=== PATIENT | male | born 1985 | race African-American/Black ===

== ENCOUNTER 2020-05-20 16:29 | Inpatient (IN) | payer OTHER ==
[~2020-05-20] VITALS: Ht 175.3 cm; Wt 68.0 kg
[2020-05-20 16:34] VITALS: BP 123/90
[2020-05-20 17:23] LABS: ABSOLUTE NEUTROPHILS 9.7 thou/uL (1.4-8.2); BASOPHILS 0.7 % (0.0-2.0); HEMATOCRIT 33.7 % (42.0-52.0); HEMOGLOBIN 10.4 gm/dL (14.0-18.0); LYMPHOCYTES 12.6 % (24.0-44.0); MCH 23.3 pg (26.0-34.0); MCHC 30.8 g/dL (28.0-37.0); MCV 75.6 fL (80.0-100.0); MONOCYTES 8.8 % (1.0-8.0); PLATELET COUNT 360 thou/uL (150-400); POLYS 74.9 % (36.0-66.0); RBC 4.45 mil/uL (4.50-6.00); RDW 19.5 % (10.5-14.5); WBC 12.9 thou/uL (4.0-11.0)
[2020-05-20 17:30] LABS: CALCIUM 9.4 mg/dL (8.5-10.1); CREATININE 1.1 mg/dL (0.7-1.3); POTASSIUM 3.5 mmol/L (3.5-5.1)
[2020-05-20 17:37] LABS: ALBUMIN 2.8 g/dL (3.4-5.0); TOTAL BILIRUBIN 0.8 mg/dL (0.2-1.0); TOTAL PROTEIN 7.2 g/dL (6.4-8.2)
[2020-05-20 20:31] LABS: URINE BLOOD NEGATIVE (Negative); URINE CLARITY CLEAR; URINE COLOR YELLOW; URINE GLUCOSE-RANDOM* NEGATIVE (Negative); URINE KETONES NEGATIVE (Negative); URINE LEUKOCYTES-REFLEX NEGATIVE (Negative); URINE NITRITE-REFLEX NEGATIVE (Negative); URINE PROTEIN (DIPSTICK) TRACE (Negative); URINE SPECIFIC GRAVITY <= 1.005 (1.005-1.035)
[2020-05-20 20:41] LABS: ICTOTEST (BILI CONFIRMATORY) Negative (Negative); URINE BILIRUBIN NEGATIVE (Negative)
[2020-05-20 20:45] LABS: INR 1.1; PROTIME 11.4 Seconds (9.3-11.4)
[2020-05-20 21:00] VITALS: BP 134/98
[2020-05-20 21:19] VITALS: BP 123/83
[2020-05-20 21:53] VITALS: BP 123/83
[2020-05-21 03:11] VITALS: BP 132/92
--- NOTE | 2020-05-21 03:15 | NUR ---
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 AND CURRENTLY GOING THROUGH CHEMO .PT COMES FROM [facility] AND HERE TO VISIT FAMILY.PT STATES HE HAS NOT EATEN FOR 1WEEK AND UNABLE TO TAKE DOWN ANYTHING.PT HAS A RT CHEST PORT-A-CATH WITH NS AT 126CC/HR.PT TO HAVE NG TUBE BUT REFUSES IT AT THIS POINTS AND WANTS IT LATER DURING THE DAY AFTER PAIN HAS BEEN MANAGED.PT IS NPO.PT USES URINAL.PT IS ON A MORPHINE SCIENTIST ELECTRONICS PUMP AND CONTINUOUS O2 SAT MONITOR AND TELE BECAUSE OF MORPHINE SCIENTIST ELECTRONICS.PT HAS A PROTRUDING ABD AND A COLOSTOMY WITH NO OUT PUT OF THIS TIME.WILL CONTINUE TO MONITOR PER POC
[2020-05-21 10:27] VITALS: BP 146/96
--- NOTE | 2020-05-21 12:23 | NUR ---
assumed care at 0700. pt is a&o x4. pt talks very fast. pt is very flat personality. CORPORATE WEBMASTER pump is intact and is being documented every 4 hours. Vertified with night nurse at 0700 for CORPORATE WEBMASTER. faxed MRI to [facility] reports . completion documentation is located in chart. pt has right port and aspiration of blood. pt denies any pain. there is no swelling or redness around IV. skin is very dry and rough. pt is currently npo. pt still denies ng tube. pt is on the tele monitor due to morphine. protuding stomach. fall precaution. call light within reach. will continue to monitor and reassess pt.
[2020-05-21 19:25] VITALS: BP 130/92
--- NOTE | 2020-05-22 02:47 | NUR ---
PT CARE ASSUMED WITH PT IN BED .PT IS A/O X4.PT USES URINAL.NG TUBE IN PLACE TO DECOMPRESS ABD.XRAY DONE TO CONFIRM CORRECT PLACEMENT OF TUBE IN STOMACH.PT IS ON MORPHINE WELDER SETTER ELECTRON BEAM MACHINE AND INTERVENTION DOCUMENTED.IV IS RT CHEST PORT- A CATH WITH D5W 0.9NS AT 125MLS/HR.PT APPEARED TO BE CALMA ND COORPERATIVE DURING SHIFT.WILL CONTINUE TO MONITOR PER POC
[2020-05-22 03:45] VITALS: BP 138/94
[2020-05-22 08:10] VITALS: BP 140/93
--- NOTE | 2020-05-22 13:10 | NUR ---
Assumed care of pt. at 0700. Pt. was calm and cooperative. At 1250 Dr. Scruggs came by to visit pt. stated that NG tube had slipped from its original placement and he wanted pushed back to original measurement and a KUB was ordered to reverify placement of NG tube. Tube immediately pushed back to orignal insertion length. Sheba also requested suction to be intermitent and set to low.
--- NOTE | 2020-05-22 15:19 | NUR ---
PT ADMITTED RELATED TO [facility]BO, MALIGNANAT NEOPLASM OF COLON WITH LIVER METS. CM REVIEWED CHART AND SPOKE WITH CARE TEAM. CM ATTEMTPED PC TO PT'S ROOM WIHT NO ANSWER. DR. GARCIA HAD BEEN CONSULTED AND HAS VISITED AND FOLLOWED UP WITH PT AND FAMILY. PT HAS STEP MOM JUAN RAMON CONTACT. 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 PT HAD [place] MEDICAID. FAMILY HAD INDICATED THAT THERE HAD BEEN SOME DISCUSSION OF PT MOVING HERE AND FOLLOWING UP WITH OR [facility] FOR CONTINUED CARES. CM TO FOLLOW UP WITH PT REGARDING PREFERENCES FOR FOLLOW UP CARES AND RESOURCES. PT HAS NG IN PLACE TO SUCTION. SURGERY, ONC, AND PALLIATIVE CARE CONSULTED. CM TO FOLLOW INDICATED WITH DC PLANNING.
[2020-05-22 17:52] LABS: ALBUMIN 2.4 g/dL (3.4-5.0); CALCIUM 8.7 mg/dL (8.5-10.1); CREATININE 0.9 mg/dL (0.7-1.3); PHOSPHORUS 3.4 mg/dL (2.6-4.7); POTASSIUM 3.5 mmol/L (3.5-5.1)
[2020-05-22 19:59] VITALS: BP 134/101
[2020-05-23 00:50] LABS: HEMATOCRIT 32.2 % (42.0-52.0); HEMOGLOBIN 9.9 gm/dL (14.0-18.0); MCH 23.4 pg (26.0-34.0); MCHC 30.6 g/dL (28.0-37.0); MCV 76.4 fL (80.0-100.0); RBC 4.21 mil/uL (4.50-6.00); RDW 19.7 % (10.5-14.5); WBC 10.4 thou/uL (4.0-11.0)
[2020-05-23 03:51] VITALS: BP 135/96
[2020-05-23 04:28] VITALS: BP 131/91
--- NOTE | 2020-05-23 04:59 | NUR ---
ASSUMED CARE OF PT AT 1900. PT IS A/O X4 AND IS UP WITH ASSISTANCE. NG IN PLACE AND DRAINING DARK BROWN WATERY LIQUID. CHEST PORT ON RIGHT CHEST IS IN PLACE AND WORKING APPROPRIATELY. DROP WIRER PUMP IN PLACE FOR COMFORT OF PT. PT C/O ITCHY SKIN. APPLIES BARRIER CREAM TO IRRITATED SKIN. TPN NOT GIVEN THEIR IS NO IV ACCESS. AWAITING IV TEAM TO PUT IN AN IV. PT REFUSED TO HAVE DROP WIRER PUMP DISCONNECTED FOR TPN TO BE GIVEN. COLOSTOMY IN PLACE AND HAS HAD ZERO OUTPUT. BLOOD PRESSURE WAS ELEVATED AT THE START OF SHIFT BUT WNL ONCE PAIN WAS UNDER CONTROL. VSS AT THIS TIME. PT IS LYING IN HIS BED AND APPEARS TO BE SLEEPING. WILL CONTINUE TO MONITOR.
[2020-05-23 06:09] LABS: HEMATOCRIT 32.3 % (42.0-52.0); HEMOGLOBIN 9.9 gm/dL (14.0-18.0); MCH 23.5 pg (26.0-34.0); MCHC 30.5 g/dL (28.0-37.0); MCV 76.9 fL (80.0-100.0); RBC 4.2 mil/uL (4.50-6.00); RDW 19.2 % (10.5-14.5); WBC 9.9 thou/uL (4.0-11.0)
[2020-05-23 06:28] LABS: ALBUMIN 2.2 g/dL (3.4-5.0); CALCIUM 8.7 mg/dL (8.5-10.1); CREATININE 0.8 mg/dL (0.7-1.3); MAGNESIUM 1.8 mg/dL (1.8-2.4); PHOSPHORUS 3.7 mg/dL (2.5-4.9); POTASSIUM 3.5 mmol/L (3.5-5.1); TOTAL BILIRUBIN 0.8 mg/dL (0.2-1.0); TOTAL PROTEIN 6.4 g/dL (6.4-8.2)
[2020-05-23 07:26] VITALS: BP 132/95
--- NOTE | 2020-05-23 16:23 | NUR ---
CM SPOKE WITH PT THIS MORNING. HE INDICATED IT WAS DIFFICULT FOR HIM TO SPEAK WIHT NG IN. HE CONFIRMED THAT HE PLANS TO RELOCATE HERE TO AREA. HE WAS AGREEABLE TO HAVING [facility] VISIT WITH HIM TO COMPLETE [place] MEDICA[place] AND DIS[place] APPLICATIONS. CM EMAILED [employer] REPS. CM NOTIFIED DR. GARCIA. CM TO FOLLOW INDICATED WITH DC PLANNING.
[2020-05-23 16:27] VITALS: BP 131/91
--- NOTE | 2020-05-23 19:58 | NUR ---
Received awake on bed. Due medications given as prescribed. On nothing per orem- pt informed and aware; mouth swabs offered. On telemetry; no complains and signs of chest pain, crushing sensation and heaviness. On room air. On blood sugar monitoring, taken and recorded accordingly. With NG to LIS, draining dark green drainage, output measured and recorded accordingly. With R chest port accessed- IV nurse Suzanna informed, she said she wasnt informed re: this patient; pt on ELECTRONICS LEAD pump- checked every 4 hours with charge nurse and signed off with next shift nurse; changed bag this afternoon as per protocol, intervention done. Continent of bladder, able to use urinal- output measured and recorded accordingly. Night RN informed me at shift change that TPN wasnt started because pt no access- called pharmacy if TPN is compatible with ELECTRONICS LEAD pump, as per Pharmacist linsey- TPN compatible with Morphine- informed and asked assistance re: starting TPN; started as per protocol- pt updated as well. Pt's mother came this afternoon, update given. To continue monitoring patient. Complained of itchiness, PRN pain meds given as prescribed.
[2020-05-23 20:02] VITALS: BP 124/75
--- NOTE | 2020-05-24 06:35 | NUR ---
ASSUMED CARE OF PT AT 1900HRS. PT AUX4 AND LETS NEEDS BE KNOWN. ASSESSMENT CHARTED. NG WAS ADVANCED TO 55CM AND CONNECTED TO LOW INTERMITTENT SUCTION WITH DARK GREEN OUTPUT. MORPHINE FIBERGLASS QUALITY TECHNICIAN CONTINUED. TPN CONTINUED. PT WAS ABLE TO GET COMFORABLE AND SLEEP PART OF THE SHIFT.
[2020-05-24 06:58] LABS: CREATININE 0.7 mg/dL (0.7-1.3); MAGNESIUM 1.9 mg/dL (1.8-2.4); PHOSPHORUS 3.3 mg/dL (2.5-4.9); POTASSIUM 3.4 mmol/L (3.5-5.1)
--- NOTE | 2020-05-24 07:09 | HC ---
[facility] [place] [address] CONSULTATION Name: RAMYA CUENCA Room #: 464-P ADM IN M.R.#: [id number] Admission: 05/20/20 Attend Phys: Ronda Cervantes Discharge: Date of : 87 Report #: [id number] THIS REPORT FOR: cc: Marielena SHEPPARD MD Physician not on staff Drew Gardner MD ~ DATE OF SERVICE: 05/21/2020 REQUESTING PHYSICIAN: Dr. Verito Butler. PRIMARY ONCOLOGIST: Dr. Pasha Cole, office phone number [phone] GENERAL SURGEON: Dr. Maldonado. HISTORY OF PRESENT ILLNESS: The patient is a 35-year-old gentleman from the [place], [place] area who usually gets his care with Dr. Cole who was visiting friends or family here in the [facility]. He reports worsening abdominal pain for about the last 2 weeks with minimal bowel movements also protuberance of his abdomen. When this provider saw the patient, he was having quite a bit of pain and had a hard time focusing answer questions. Much of the information obtained from other charts and also I talked with one of the doctors on-call, present medical oncologist in [place]. The patient reports and the other doctor confirms that the patient was diagnosed with what sounds like sigmoid cancer, metastatic to liver back in 09/2018. The patient is not sure if the primary tumor was resected and the doctor in [place] thinks from ____, that it may not have been resected, the patient began chemotherapy. It sounds like he may have had standard chemotherapies with things such as FOLFOX, Avastin, FOLFIRI, cetuximab and may be on omhhvj-vvs-qustp-line chemotherapy. Outside doctors seem to think the patient's last chemotherapy was in February, though the patient seemed to ____ several weeks ago. The patient seemed to think he had imaging in February whereas the outside physician thinks it may have been in December. We were in the process of obtaining both copies of notes from their office and also see if we can get images clouded from their facility to ours for comparison. The patient was seen in the ER last night. His CAT scan had evidence of both local disease and liver metastasis and also what may be small bowel loops dilated before the parastomal hernia and there is concern the patient may have had an obstruction caused by an adhesion or hernia. The patient will be seen by General Surgery later this morning. The patient is unable to provide much more history other than that. It sounds like previous to this, the patient had not had any new fevers, new chills, new arm or leg swelling. It sounds like it is mostly the ____ nausea, vomiting, decreased appetite and abdominal pain for the last week. Also, he has not had any stool in his ostomy bag since the symptoms began. The patient had tried his medicines, which he had available to him, [address] [place] [address] CONSULTATION Name: RAMYA CUENCA Room #: 464-P [facility] IN M.R.#: [id number] Admission: 05/20/20 Attend Phys: Ronda Cervantes Discharge: Date of : 87 Report #: [id number] which sounds like he had fentanyl, gabapentin, oxycodone, and morphine. SOCIAL HISTORY: Difficult to obtain at this time. He is a current 2-3 cigarettes a day smoker. Alcohol, yes. Marijuana maybe daily. FAMILY HISTORY: Not obtained at this time. PAST MEDICAL HISTORY: Notable for the colon cancer with mets to the liver. Also, possible partial colon resection, colostomy placement, and may be some liver surgery, also Port-A-Cath placement. FAMILY HISTORY: Does not appear to be contributing to the patient's admission. LABORATORY DATA: Lab work was notable for hemoglobin of 10.4, white count of 12.9. Electrolytes normal. Alkaline phosphatase elevated at 180. Albumin decreased at 2.8. CURRENT MEDICATIONS: Include morphine, I think on a ____ famotidine 20 b.i.d. IV, fentanyl p.r.n., IV fluids. The patient had extended morphine available to him. Supposedly, he had been also on extended morphine 15 mg, oxycodone IR 5 mg, gabapentin 300 mg, potassium chloride 20 mEq. These are currently in the pharmacy. PHYSICAL EXAMINATION: GENERAL: The patient is in obvious discomfort, having a hard time focusing answer questions. VITAL SIGNS: Recent height is 5 feet 9 inches, 175.3 cm, weight 150 pounds or 68 kilograms. Afebrile at 98.7, blood pressure 123/83, O2 sat 97-99%, respirations 18, pulse 97. NEUROLOGIC: Face appears symmetrical, moving arms and legs. Speech and thought pattern appropriate, but the patient is in obvious pain. He is having a difficult time focusing at this time. LUNGS: Appear to be clear. HEART: Appears to have a Port-A-Cath, right chest. ABDOMEN: Has obvious colostomy. Abdomen is protuberant. There are almost hyperactive bowel sounds in the upper right quadrant. EXTREMITIES: Without clubbing, cyanosis or edema. ASSESSMENT AND PLAN: 1. Metastatic sigmoid cancer diagnosis per history. He has been on several therapies. We will need to clarify when his last therapy was and whether he was responding. If he has had multiple lines of therapy, it may be time to consider palliative care with regards to his systemic disease treatment. For now, we will await surgeon's input regarding possible bowel obstruction and need for surgical relief if possible. [facility] [address] [place] [address] CONSULTATION Name: RAMYA CUENCA Room #: 464-P ADM IN M.R.#: [id number] Admission: 05/20/20 Attend Phys: Ronda Cervantes Discharge: Date of : 87 Report #: [id number] 2. Pain. Continue opiates per others. 3. Dehydration. Continue IV fluids. We will follow with you. <ELECTRONICALLY SIGNED> By: Drew Gardner MD 05/24/20 0709 [id number] Drew Gardner MD /nt
[2020-05-24 08:02] VITALS: BP 137/98
[2020-05-24 15:47] VITALS: BP 135/102
--- NOTE | 2020-05-24 20:54 | NUR ---
PT A&OX4, VSS, NO C/O PAIN. PATIENT HAS NG TUBE, DARK GREEN OUTPUT. PATIENT HAS RIGHT CHEST PORT, TPN RUNNING. PATIENT HAS COLOSTOMY. PATIENT ON MORPHINE WOODWORKING CRAFTSMAN PUMP. PATIENT EATING ICE, OTHERWISE NPO. NO SIGNS OF DISTRESS. WILL CONTINUE TO MONITOR.
--- NOTE | 2020-05-25 04:28 | NUR ---
Pt. rested quietly at intervals during the night when checked on during frequent rounds. He was up to the bathroom with standby assistance and had a loose brown bowel movement with a scant amount of red blood present. Useing morphine systems lead for pain control. Ng tube patent to left nostril. No c/o nausea. Bed alarm is on.
[2020-05-25 08:03] VITALS: BP 119/88
[2020-05-25 08:36] LABS: CREATININE 0.7 mg/dL (0.7-1.3); MAGNESIUM 1.9 mg/dL (1.8-2.4); PHOSPHORUS 3.6 mg/dL (2.6-4.7); POTASSIUM 3.7 mmol/L (3.5-5.1)
--- NOTE | 2020-05-25 08:40 | NUR ---
OSTOMY CARE; ALERT. COOPERATIVE, DID NOT BRING SUPPLIES TO HOSP, DUE TO LARGE STOMA SIZE PT USES 4'INCH REBECCA CUT TO FIT APPLIANCE, POUCH INTACT, NO STOOL NOTED, SUPPLIES PLACED AT [facility] TANNER INFORMED
--- NOTE | 2020-05-25 10:56 | NUR ---
[facility] referral sent per MD request for transfer of care services as patient has consented to possible transfer. Notified MD of need for new Covid testing and referral sent. Now awaiting response from [facility].
--- NOTE | 2020-05-25 14:46 | NUR ---
At 1440 called [facility] at [phone] Cervantes call this line to initiate the MD to MD request.
--- NOTE | 2020-05-25 19:31 | NUR ---
ASSUMED CARE OF THE PATIENT AT 0715, PATIENT ALERT AND ORIENTED X 4. PATIENT UP WITH ASSIST X 1 WITH THE WALKER. PATIENT HAS PET SUPPLIES SALESPERSON PUMP WITH MORPHINE 1 MG/HR Q 6MIN. PATIENT ASSISTED UP TO THE BATHROOM. DR ROCHE HERE TODAY, PATIENT WILL TRANSFER TO FOR AGGRESSIVE TREATMENT. UPDATE GIVEN TO STEP MOTHER. PATIENT CLEANED UP SOME TODAY AND LINEN CHANGED PER PET SUPPLIES SALESPERSON/RUSS. NO INFO ON TRANSFER THIS SHIFT. REPORT GIVEN TO DALILA/RN. PATIENT GIVEN BENADRYL THIS AFTERNOON FOR ITCHING.
[2020-05-25 20:13] VITALS: BP 141/90
--- NOTE | 2020-05-26 05:57 | NUR ---
VSS-AFEBRILE. LUNGS DIMISHED IN ALL SINGER BILATERALLY. NGT REMAINS IN PLACE, DRAINING BROWN FLUID TO RECEPTACLE. C/O SIGNIFICANT ABDOMINAL PAIN, REQUIRED ADDITIONAL FENTANYL THROUGH NIGHT FOR BREAKTHROUGH PAIN. WAS FINALLY ABLE TO REST WELL LATE INTO SHIFT. VOIDS USING URINAL WITHOUT DIFFICULTY. REFUSES TO HAVE BLOOD SUGARS CHECKED CITING SORE FINGERS. FALL PRECAUTIONS IN PLACE.
[2020-05-26 06:10] LABS: ALBUMIN 2.3 g/dL (3.4-5.0); CALCIUM 8.8 mg/dL (8.5-10.1); CREATININE 0.7 mg/dL (0.7-1.3); MAGNESIUM 1.9 mg/dL (1.8-2.4); POTASSIUM 3.8 mmol/L (3.5-5.1); TOTAL BILIRUBIN 0.7 mg/dL (0.2-1.0); TOTAL PROTEIN 6.9 g/dL (6.4-8.2)
[2020-05-26 08:12] VITALS: BP 132/84
[2020-05-26 09:00] VITALS: BP 127/83
[2020-05-26 15:28] VITALS: BP 122/86
--- NOTE | 2020-05-26 18:51 | NUR ---
PT A&OX4, VSS, GENERALIZED PAIN. PATIENT HAS COLOSTOMY NO OUTPUT. PATIENT HAS NG TUBE. PATIENT ON MORPHINE PAIN PUMP. PATIENT AWAITING TO DISCHARGE TO . NO SIGNS OF DISTRESS. WILL CONTINUE TO MONITOR.
[2020-05-26 20:07] VITALS: BP 130/84
[2020-05-27 03:28] VITALS: BP 119/80
[2020-05-27 07:49] LABS: CALCIUM 8.6 mg/dL (8.5-10.1); CREATININE 0.7 mg/dL (0.7-1.3); MAGNESIUM 2.2 mg/dL (1.8-2.4); PHOSPHORUS 2.5 mg/dL (2.5-4.9); POTASSIUM 3.5 mmol/L (3.5-5.1)
--- NOTE | 2020-05-27 07:53 | NUR ---
Assumed pt care at 1900. A/OX4 with flat affect. VSS.C/o pain to abd, on a CORPORATION OFFICER pump and Fentanyl for breakthrough pain. NG hooked up to LIS with greeninsh output noted. Colostomy in place with no output noted. Dry skin allover,benadryl given for itching with relief noted. Lab called with blood cultures results positive for yeast;ESTEFANY Rossi notified and n.o for Diflucan obtained. Right chest patent with TPN/NS/CORPORATION OFFICER infusing w/o any problems noted. Encouraged to call as needed. ST/NSR on telemetry,continuous POX in place.
[2020-05-27 08:00] VITALS: BP 121/82
[2020-05-27 16:17] VITALS: BP 124/95
--- NOTE | 2020-05-27 19:38 | NUR ---
Assumed pt care at 7am.Pt in bed sleeping on and off.Assessment completed.vss. Pt on ms human resources hr generalist but asking for fentanyl iv nearly every 2hour.Rn educated pt on human resources hr generalist usage .Tpn and maintenance ivf in progress.Pt voided per urinal and chew ice at alltimes.Pt mom here,updated given.Pt might transfered to in am if insurance accepted.Report off to Lisy hernández.
[2020-05-27 20:00] VITALS: BP 119/87
--- NOTE | 2020-05-28 04:28 | NUR ---
VSS-AFEBRILE. C/O SIGNIFICANT ABDOMINAL PAIN OVERNIGHT, REPORTS THAT MORPHINE IS NOT WORKING WELL FOR PAIN. PAIN PARTIALLY RELIEVED WITH IV FENTANYL. VOIDING PER URINAL. NO VISIBLE STOOL FROM COLOSTOMY. NGT CONTINUES TO DRAIN MODERATE AMOUNT OF BROWN LIQUID INTO DRAINAGE RECEPTACLE. TURNS SELF AROUND IN BED. FALL PRECAUTIONS IN PLACE, CALLS APPROPRIATELY FOR ANY NEEDED ASSISTANCE.
[2020-05-28 06:37] LABS: CREATININE 0.7 mg/dL (0.7-1.3); MAGNESIUM 2.1 mg/dL (1.8-2.4); POTASSIUM 4.1 mmol/L (3.5-5.1)
[2020-05-28 08:31] VITALS: BP 122/85
[2020-05-28 08:32] VITALS: BP 122/85
--- NOTE | 2020-05-28 20:07 | NUR ---
PT ALERT AND ORIENTED TIMES FOUR, WITH FALT SAD AFFECT. VSS, TPN AND IVF INFUSING PER ORDER. NG IN PLACE. MORPHINE OPERATIONS ADMINISTRATIVE ASSISTANT DISCONTINUED THIS SHIFT. PT CONTINUES TO GET FENTANYL FOR PAIN. SPOKE WITH PT MOM TODAY TO UPDATE ON CARE. WAITING ON APPROVAL TO TRANSFER TO . WILL CONTINUE TO MONITOR.
[2020-05-29 06:37] LABS: CALCIUM 8.9 mg/dL (8.5-10.1); CREATININE 0.7 mg/dL (0.7-1.3)
[2020-05-29 08:38] VITALS: BP 144/92
--- NOTE | 2020-05-29 12:48 | NUR ---
Patient refused blood sugar check.
--- NOTE | 2020-05-29 15:05 | NUR ---
MELISSA MET WITH PT AT BEDSIDE THIS DAY. PT WAS AGREEABLE WITH REFERRALS BEING SENT TO [facility] FOR POSSIBLE TRANSFER RELATED SURGICAL INTERVENTION FOR OBSTRUCTED STOMA. CM CALLED TRANSFER CENTER AND FAXED CLINICAL INFO. LOOKING INTO POSSIBLE TRANSFER TO [facility] OR [facility]. CM TO CONTACT [facility]. CM TO FOLLOW INDICATED WITH DC PLANNING.
[2020-05-29 15:09] VITALS: BP 141/97
--- NOTE | 2020-05-29 15:33 | NUR ---
Patient has not eaten or drunk so far.
--- NOTE | 2020-05-29 18:55 | NUR ---
According to the night nurse of the night of 05/28/2020, the NG tube came out accidently, but Dr. Cervantes voiced that if the patient didnot have nausea or vomitting, no need to put the NG in and NG tube was only needed if the patient had nausea or vomitting; the patient denied nausea. Patient did not eat or drink for the whole shift, voicing that he could not eat or drink due to the pain. around 6:30 pm, the patient reported vomitting. The emesis was brown color with fresh blood spots. The staff told the patient to keep NPO. The staff has paged Dr. Palomo, awaiting for the reponse to see if the NG tube needed to be put back, if the patient needed to be NPO again, can the Zofran be administrated.
[2020-05-29 19:54] VITALS: BP 134/101
--- NOTE | 2020-05-30 03:18 | NUR ---
PT CARE ASSUMED WITH PT IN BED.PT IS A/O X4.PT IS UP AD JEWELS AND EDUACTED O CALL FOR HELP.PT IS ON CLEAR LIQUID DIET.PT HAS A COLOSTOMY WITH VERY LITTLE OUTPUT.PT HAS FENTANYL Q2H PRN FOR PAIN MANAGEMENT AND ATIVAN FOR ANXIETY.PT IS ACCUCHECK Q6H.WILL CONTINUE TO MONITOR POC
[2020-05-30 09:44] VITALS: BP 136/97
--- NOTE | 2020-05-30 14:07 | NUR ---
1 WHARFMASTER, 1 DINAMAP MACHINE, 16 PATIENTS
--- NOTE | 2020-05-30 14:15 | NUR ---
PT A&OX4, FORGET, VSS, C/O PAIN. PATIENT GETS BENADRYL FOR ITCHING. PATIENT NO LONGER ON SET UP OPERATOR TOOL PAIN PUMP, NO NG TUBE. PATIENT HASNT VOMITED. PATIENT HAS RIGHT CHEST PORT. PLAN IS TO RECONNECT WITH [facility] AND GET PATIENT THERE FOR NEEDED CARES. NO SIGNS OF DISTRESS. WILL CONTINUE TO MONITOR.
[2020-05-30 16:26] VITALS: BP 124/90
--- NOTE | 2020-05-30 16:26 | NUR ---
UR NURSE SPOKE WITH [place] MEDICAID AND THEY INDICATED THAT IF PHYSICIAN INDICATED THAT TRANSFER WAS EMERGANTLY NEEDED THAT THEY WOULD LIKELY COVER STAY AT ANOTHER HOSPITAL FOR SERVICES. CM SONVEYED THIS TO PT AND HE WAS AGRREEABLE WITH REFERRAL BEING SENT TO [facility] AGAIN. CM CALLED TRANSFER CENTER AND THEY INDICATED THEY WOULD REVIEW. CM INCLUDED THE INSURANCE AUTH INFO WELL. MELISSA SPOKE WITH ROSE MAR[facility] AND SHE INDICATED THEY WERE DECLINING PT IN TRANSFER HE IS OON AND THEY ARE AT [place]. CM ATTEMPTED PC TO PT'S STEP MOM AND GOT VM. CM NOTIFIED.
[2020-05-30 19:15] VITALS: BP 133/99
--- NOTE | 2020-05-31 03:05 | NUR ---
PT CARE ASSUMED WITH PT IN BED SLEEPING.PT IS A/O X4.PT US UP AD JEWELS AND CALLS WHEN NEED HELP.PT C/O PAIN AND PAIN MANAGED WITH FENTANYL Q2H WITH PARTIAL.IV ACCESS RT CHEST A PORT WITH NS AT 80CC/HR.PT IS ACCUCHECK Q6H BUT REFUSED MIDNIGHT BLOOD SUGAR CHECKING.WILL CONTINUE TO MONITOR
[2020-05-31 03:20] VITALS: BP 139/103
[2020-05-31 05:01] VITALS: BP 142/107
[2020-05-31 08:45] VITALS: BP 128/93
--- NOTE | 2020-05-31 10:48 | NUR ---
CM NOTIFIED PT YESTERDAY THAT [facility] DECLINED TRANSFER. CM SPOKE WITH PT'S STEP MOM YESTERDAY EVENING AND SHE EXPRESSED UNDERSTANDING. SHE INDICATED SHE WOULD BE OK WITH REFERRAL BEING SENT TO [facility] THIS AM. CM MET WITH PT AND HE IS AGREEABLE WELL. CM GOT COPIES OF PT'S [place] MEDICAID CARD AND FAXED REFERRAL TO [facility]. CM SPOKE WITH [facility] IN TRANSFER CENTER AND THEY ARE AWAITING REFERRAL FOR REVIEW. PHYSICIAN INFO ALSO PROVIDED. CM TO FOLLOW INDICATED WITH HOPEFUL TRANSFER.
--- NOTE | 2020-05-31 16:17 | NUR ---
Assumed pt care at 7am.Pt in bed most of the times c/o abdominal pain rated 9/10.Fentanyl ivp given q2h with partial relief.Received call from pt dad,wanted to know when pt will be transfer to .Rn replied that shoe caser and Dr Cervantes has been working on it and will let pt know when it finalized. Pt was inpatient and wanted pain med given earlier than 2h.Dr Cervantes aware. Will continue to monitor.
[2020-05-31 20:15] VITALS: BP 140/96
--- NOTE | 2020-06-01 02:56 | NUR ---
ASSUMED CARE OF PT AT 1900HRS. PT AOX4 AND LETS NEEDS BE KNOWN. FALL PRECAUTION IN PLACE FOR SAFETY. PT REPORTS PAIN AND PRN MEDS PROVIDED AROUND THE CLOCK. PT WAS ABLE TO TOLERATE SMALL PO LIQUIDS THIS SHIFT. ASSESSMENT CHARTED. VSS AND NO S/S OF ACUTE DISTRESS. WILL CONTINUE TO MONITOR.
[2020-06-01 07:31] VITALS: BP 140/99
[2020-06-01 19:47] VITALS: BP 135/94
--- NOTE | 2020-06-01 20:22 | NUR ---
Assumed pt care this am, VS stable pain is not managed no fluids noted and still NPO except for sips of water with medication. POC followed, wants medication on the dot. endorsed to the night nurse. Is able to tolerated fluids (apple juice and broth).
[2020-06-02 07:25] VITALS: BP 147/106
--- NOTE | 2020-06-02 07:57 | NUR ---
VSS-AFEBRILE. UPSET AND AGITATED OVERNIGHT, STATES THAT HIS PAIN IS NOT CONTROLLED DESPITE FREQUENT DOSES. DISCUSSED WITH PHYSICIAN, WILL WORK ON PAIN MANAGEMENT PLAN TODAY. RIGHT CHEST PORT SALINE LOCKED. CALLS FOR ANY NEEDED ASSISTANCE.
[2020-06-02 11:14] LABS: HEMATOCRIT 28.6 % (42.0-52.0); HEMOGLOBIN 8.7 gm/dL (14.0-18.0); MCH 22.7 pg (26.0-34.0); MCHC 30.4 g/dL (28.0-37.0); MCV 74.5 fL (80.0-100.0); RBC 3.83 mil/uL (4.50-6.00); RDW 19.6 % (10.5-14.5)
[2020-06-02 11:27] LABS: CALCIUM 8.9 mg/dL (8.5-10.1); CREATININE 0.8 mg/dL (0.7-1.3); POTASSIUM 3.4 mmol/L (3.5-5.1)
--- NOTE | 2020-06-02 13:44 | NUR ---
Patient BG 69, patient refused blood sugar check after the treatment.
--- NOTE | 2020-06-02 14:17 | NUR ---
Dr. Palomo stated that the patient is NPO. Patient has been asking to get to ER to get something to drink. The staff explained it to the patient.
--- NOTE | 2020-06-02 15:35 | NUR ---
CM CALLED OVER TO [facility] TRANSF[facility] AT 1530 THIS DAY. CM INDICATED THAT WE ARE STILL LOOKING TO TRANSFER PT. THEY ARE CHECKING TO SEE IF THEY MIGHT BE ABLE TO ACCEPT AGAIN. AWAITING RESPONSE. CM TO FOLLOW INDICATED WITH DC PLANNING.
[2020-06-02 15:45] VITALS: BP 128/93
--- NOTE | 2020-06-02 18:43 | NUR ---
Patient Blood sugar 61, refused blood sugar recheck after the treatment.
[2020-06-02 19:59] VITALS: BP 133/104
--- NOTE | 2020-06-02 20:06 | NUR ---
Night nurse Kareen witnessed TRAILER STEERER pump cleared during the shift report, agreed to verify it.
--- NOTE | 2020-06-03 05:42 | NUR ---
Pt. rested quietly at intervals during the night when checked on during frequent rounds. Fentanyl tree climber providing some abominal pain relief. No c/o nausea. Benadryl given for c/o itching with some relief noted (see emar).
[2020-06-03 07:29] VITALS: BP 133/98
--- NOTE | 2020-06-03 13:19 | HC ---
[facility] [place] [address] CONSULTATION Name: RAMYA CUENCA Room #: 464- ADM IN M.R.#: [id number] Admission: 05/20/20 Attend Phys: Ronda Cervantes Discharge: Date of : 87 Report #: [id number] THIS REPORT FOR: cc: Marileena SHEPPARD MD Physician not on staff Andrew Nathan MD ~ SECOND OPINION CONSULT HISTORY OF PRESENT ILLNESS: The patient is a 35-year-old who was admitted for bowel obstruction. Unfortunately, the patient has metastatic colon cancer with colostomy. The patient came in because of inability to eat, abdominal pain. The patient has not had any output from his ostomy for about a week. [place] from out of town, so information is fairly limited. The patient had a CT scan performed. Has an obstructive pattern, but I looked at the CT and it is difficult to determine the exact site of the obstruction. He does have a fair amount of stool in the right side of his colon. EXAMINATION: The patient is cachectic, which is consistent with his metastatic colon cancer. Abdomen is distended and firm. He is difficult to examine. He would not like you really palpate very much. He would push your hand away. The patient has a colostomy in the left lower quadrant, which looks like a loop colostomy. The herniated bowel is superior to the stoma. It is soft and not particularly tender in that area. Abdomen feels like it is fairly ____ by physical exam, there is not much mobility at all. 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 Has ascites. The omentum looks very thickened. Unfortunately, it is difficult when I reviewed the CT to determine where the site of the obstruction. I am not convinced that ____ obstructed at the parastomal hernia site. So, I do not think fixing that may not resolve his bowel obstruction. He could have implant along the small bowel more proximally causing the obstruction. Unfortunately, with his metastatic disease to the degree that he has, there is no surgery possible. I agree with Dr. Maldonado that possible referral to tertiary center if surgery is planned to be attempted. <ELECTRONICALLY SIGNED> By: Andrew Nathan MD 06/03/20 1319 [id number] Andrew Nathan MD /nt
[2020-06-03 14:53] VITALS: BP 132/93
--- NOTE | 2020-06-03 19:53 | NUR ---
Assumed pt care this am, VS stable currently on the fentanyl scorer single pump, partial relief of pain and dependency (narcotics) is noted. Steady on his gait, is able to ambulate in his room, took a complete self bath and use the commode on his own. Step mother at the bedside, conversed with Dr. Maldonado regarding possible outcomes with regards to surgery, no plans are made as of this time. Small volume of stool is note in the colostomy bag. Pt does not fully comprehend the gravity of his condition nor understands what stes need to be done to be able to get to [facility] for the surgery. POC followed, with partial relief of pain noted, endorsed to the night nurse.
[2020-06-03 20:25] VITALS: BP 134/100
--- NOTE | 2020-06-04 05:11 | NUR ---
Pt. rested quietly at short intervals during the night when checked on during frequent rounds. Continues on the fentanyl bellmaker pump with some relief of ab- dominal pain. No c/o nausea. Tolerating clear liquid diet. Benadryl given (see emar) for c/o itching with mild relief.
[2020-06-04 08:00] VITALS: BP 120/87
[2020-06-04 08:43] VITALS: BP 120/87
[2020-06-04] MEDS ORDERED: CATAPRES-TTS 20.2 MG TRANSDERM (11:03)
[2020-06-04] MEDS ORDERED: DIFLUCAN200 MG PO (11:03)
[2020-06-04] MEDS ORDERED: HYDROCODONE-ACE15 ML PO (11:04)
[2020-06-04] MEDS ORDERED: ZOFRAN ODT4 MG PO (11:16)
--- NOTE | 2020-06-04 20:00 | NUR ---
PT A&0X4, VSS, GENERALIZED PAIN. PATIENT ON STOCK BUYER PUMP. PATIENT DISCHARGED HOME. PATIENT STATED HE WAS GOING TO [facility] THIS SAME NIGHT BECAUSE HE WAS AFRAID HE COULDNT GET HIS PRESCRIPTIONS FILLED OR SOME OTHER EVENT OUT OF HIS CONTROL. PATIENTS LEFT CHEST PORT HEPARINIZED AND DEASSESSED. PATIENT WAS AWARE THAT HE HAD DISCHARGE ORDERS SINCE THIS AM. PATIENT TOLD THIS NURSE HE HAD TO WAIT ON HIS STEP MOM. APPROX 1500 PATIENT STATED HIS STEP MOM WOULDNT BE ABLE TO COME. CALL MADE TO DOCTOR AND DOCTOR STATED OFFER CAB VOUCHER IF PATIENT NEEDED HELP HOME. THIS NURSE CALLED STEP MOM, SHE STATED PATIENT TOLD HER, HE WAS TO DISCHARGE NEXT DAY ON 06/05. I TOLD HER NO IT WAS TODAY. PATIENTS STEP MOM PICKED HIM UP FROM HOSPITAL. PATIENT HAS ALL BELONGINGS. PATIENT LEFT IN NO DISTRESS.
== END 2020-06-04 18:07 | disposition home or self-care (01) | DRG 389 ==
LOC: ER 16:29 → EROBS 20:29 → 4W 20:29
PROVIDERS: Nurse Practitioner Family; Physician Assistant; Surgery; ADMIT Hospitalist; ATTEND Hospitalist
PROC: 0D9670Z Drainage of Stomach with Drainage Device, Via Natural or Artificial Opening (ICD-10-PCS; principal; 2020-05-22)
DX: K56.600 Partial intestinal obstruction, unspecified as to cause (principal); C18.9 Malignant neoplasm of colon, unspecified; C78.7 Secondary malignant neoplasm of liver and intrahepatic bile duct; R18.8 Other ascites; C80.0 Disseminated malignant neoplasm, unspecified; B49 Unspecified mycosis; F12.90 Cannabis use, unspecified, uncomplicated; D72.829 Elevated white blood cell count, unspecified; K43.5 Parastomal hernia without obstruction or gangrene; F32.9 Major depressive disorder, single episode, unspecified; E86.0 Dehydration; F41.9 Anxiety disorder, unspecified; Z20.822 Contact with and (suspected) exposure to COVID-19; Z87.891 Personal history of nicotine dependence; Z93.3 Colostomy status; Z92.21 Personal history of antineoplastic chemotherapy
CPT/HCPCS: 10040